=== PATIENT | male | born 1960 | race American Indian/Alaskan Native ===

== ENCOUNTER 2018-06-13 12:11 | Emergency (ER) | payer OTHER ==
[2018-06-13 12:26] VITALS: TEMP 98.4
--- NOTE | 2018-06-13 12:39 | ED PDOC ---
Arrival/HPI - General Chief Complaint: Chest Pain Time Seen by Provider: 06/13/18 12:16 Historian: Patient, Spouse - History of Present Illness Narrative History of Present Illness (Text): 06/13/18 12:39 57 year old male, whose past medical history includes cardiac stent (2012), prostate removal surgery (2018), HTN, and hyperlipedimia who presents to the emergency department complaining of chest pain, and lower abdominal and back pain, since the past 24hrs. Patient states that he was home sitting on his couch when he felt a sudden onset of throbbing pain in his lower abdominal region that radiates to his lower back. He rates the pain as a 6-7/10, no improvement with Tylenol or Motrin. He reports associated shortness of breath, chills, dizziness, nausea, 1 episode of vomit, bloating in his abdominal region, and excess gas. Patient denies fevers, rashes, headache, cough, diarrhea, neck pain, or any other complaint. PMD: Dr. Mccartney Time/Duration: 24 hours Symptom Course: Unchanged Quality: Throbbing Activities at Onset: Light Context: Home Past Medical History - Provider Review Nursing Documentation Reviewed: Yes - Travel History Have you recently traveled outside [place] w/in the past 3 mons?: No - Cardiac Hx Hypertension: Yes Other/Comment: x 1 stent in 2012 - Psychiatric Hx Substance Use: No - Surgical History Other/Comment: prostate removal as per pt in 2018 - Anesthesia Hx Anesthesia: Yes Hx Anesthesia Reactions: No Hx Malignant Hyperthermia: No Family/Social History - Physician Review Nursing Documentation Reviewed: Yes Family/Social History: No Known Family HX Smoking Status: Never Smoked Hx Alcohol Use: No Hx Substance Use: No Allergies/Home Meds Allergies/Adverse Reactions: Allergies No Known Allergies Allergy (Verified 06/13/18 12:23) Review of Systems - Physician Review All systems were reviewed & negative as marked: Yes - Review of Systems Constitutional: absent: Fevers Eyes: absent: Vision Changes Respiratory: SOB. absent: Cough Cardiovascular: Chest Pain Gastrointestinal: Abdominal Pain, Nausea, Vomiting. absent: Constipation, Diarrhea Genitourinary Male: absent: Dysuria Musculoskeletal: Back Pain. absent: Neck Pain Skin: absent: Rash Neurological: Dizziness. absent: Headache Physical Exam Vital Signs Reviewed: Yes Vital Signs Temp Pulse Resp BP Pulse Ox 06/13/18 12:12 98.4 F 75 18 186/91 H 100 Temperature: Afebrile Blood Pressure: Hypertensive Pulse: Regular Respiratory Rate: Normal Appearance: Positive for: Well-Appearing, Non-Toxic, Comfortable Pain Distress: None Mental Status: Positive for: Alert and Oriented X 3 - Systems Exam Head: Present: Atraumatic, Normocephalic Pupils: Present: PERRL Extroacular Muscles: Present: EOMI Conjunctiva: Present: Normal Mouth: Present: Moist Mucous Membranes Neck: Present: Normal Range of Motion Respiratory/Chest: Present: Clear to Auscultation, Good Air Exchange. No: Respiratory Distress, Accessory Muscle Use, Tender to Palpation (non tender to anterior chest) Cardiovascular: Present: Regular Rate and Rhythm, Normal S1, S2. No: Murmurs Abdomen: No: Tenderness, Distention, Peritoneal Signs Back: Present: CVA Tenderness (bilateral CVA tenderness). No: Midline Tenderness (no midline or lumbar tenderness) Upper Extremity: Present: Normal Inspection. No: Cyanosis, Edema Lower Extremity: Present: Normal Inspection. No: Edema Neurological: Present: GCS=15, CN II-XII Intact, Speech Normal Skin: Present: Warm, Dry, Normal Color. No: Rashes Psychiatric: Present: Alert, Oriented x 3, Normal Insight, Normal Concentration Medical Decision Making ED Course and Treatment: 06/13/18 12:39 Impression: 57 year old male who presents to the emergency department with chest pain, lower abdominal pain, and lower back pain. HEART Score: 2 Differential Diagnosis included but are not limited to: ACS choleilithiasis pancreatitis renal colic pylonephritis Plan: -- CT of abdomen and Pelvis -- EKG -- Labs -- Chest X-Ray -- Elixir -- Maalox Plus -- Pepcid -- Urinalysis -- Reassess and disposition Progress Notes: 06/13/18 15:11 Labs received with troponin negative. CT A/P pending. 06/13/18 15:38 CT a/p reveals mild right sided hydroneprosis with perinephric stranding. Results explained to patient who demonstrates understanding. Toradol ordered. He is stable for discharge. - Lab Interpretations I have reviewed the lab results: Yes - RAD Interpretation Narrative RAD Interpretations (Text): 06/13/18 14:03 Chest X-Ray reviewed, shows: FINDINGS: LUNGS:No active pulmonary disease. PLEURA:No significant pleural effusion identified, no pneumothorax apparent. CARDIOVASCULAR:No aortic atherosclerotic calcification present. Normal cardiac size. No pulmonary vascular congestion. OSSEOUS STRUCTURES:No significant abnormalities. VISUALIZED UPPER ABDOMEN:Normal. OTHER FINDINGS:None. IMPRESSION: No active disease. 06/13/18 15:40 CT of abdomen and Pelvis Reviewed, shows: FINDINGS: LOWER THORAX:Unremarkable. LIVER:Unremarkable. No gross lesion or ductal dilatation. GALLBLADDER AND BILE DUCTS:Unremarkable. PANCREAS:Unremarkable. No gross lesion or ductal dilatation. SPLEEN:Unremarkable. ADRENALS:Unremarkable. No mass. KIDNEYS AND URETERS:There is mild right-sided hydronephrosis and perinephric stranding. There is no visible ureteral stone. This may be secondary to recent passage of a stone or pyelonephritis. Clinical correlation is suggested. VASCULATURE:Unremarkable. No aortic aneurysm. No aortic atherosclerotic calcification or mural plaque present. BOWEL:Unremarkable. No obstruction. No gross mural thickening. APPENDIX:Unremarkable. Normal appendix. PERITONEUM:Unremarkable. No free fluid. No free air. LYMPH NODES:Unremarkable. No enlarged lymph nodes. BLADDER:Unremarkable. REPRODUCTIVE:Unremarkable. BONES:No acute fracture. OTHER FINDINGS:None. IMPRESSION: There is mild right-sided hydronephrosis and perinephric stranding. There is no visible ureteral stone. This may be secondary to recent passage of a stone or pyelonephritis. Clinical correlation is suggested. Soda Fountain Operator: Radiologist - EKG Interpretation EKG Interpretation (Text): 06/13/18 12:15 EKG reviewed shows: NSR at 92bpm with LVH, T-wave inversions in v5 and v6. Interpreted by ED Physician: Yes Type: 12 lead EKG - Scribe Statement The provider has reviewed the documentation as recorded by the Fabianoe Esperanza Francis Provider Scribe Attestation: All medical record entries made by the Scribe were at my direction and personally dictated by me. I have reviewed the chart and agree that the record accurately reflects my personal performance of the history, physical exam, medical decision making, and the department course for this patient. I have also personally directed, reviewed, and agree with the discharge instructions and disposition. Disposition/Present on Arrival - Present on Arrival Any Indicators Present on Arrival: No History of DVT/PE: No History of Uncontrolled Diabetes: No Urinary Catheter: No History of Decub. Ulcer: No History Surgical Site Infection Following: None - Disposition Have Diagnosis and Disposition been Completed?: Yes Diagnosis: Renal colic Disposition: HOME/ ROUTINE Disposition Time: 16:17 Patient Plan: Discharge Condition: IMPROVED Discharge Instructions (ExitCare): Renal Colic (DC) Print Language: INDONESIAN Additional Instructions: All medical record entries made by the Scribe were at my direction and personally dictated by me. I have reviewed the chart and agree that the record accurately reflects my personal performance of the history, physical exam, medical decision making, and the department course for this patient. I have also personally directed, reviewed, and agree with the discharge instructions and disposition. Prescriptions: RX: Ibuprofen [Motrin Tab] 600 mg PO Q6H PRN 6 Days #24 tab PRN Reason: Pain, Moderate (4-7) Referrals: Perla Mccartney MD [Primary Care Provider] - Follow up with primary Forms: [email or web address] ([place])
[2018-06-13] MEDS ORDERED: Alum-Mag Hydrox-Simethicone Susp (30 mL) PO STA (12:44)
[2018-06-13] MEDS ORDERED: Atrop/Hyosc/Scopal/PB Elixir (120 ml) PO STA (12:44)
--- NOTE | 2018-06-13 13:15 | RAD ---
Date of service: 06/13/2018 HISTORY: chest pain COMPARISON: No prior. FINDINGS: LUNGS: No active pulmonary disease. PLEURA: No significant pleural effusion identified, no pneumothorax apparent. CARDIOVASCULAR: No aortic atherosclerotic calcification present. Normal cardiac size. No pulmonary vascular congestion. OSSEOUS STRUCTURES: No significant abnormalities. VISUALIZED UPPER ABDOMEN: Normal. OTHER FINDINGS: None. IMPRESSION: No active disease.
[2018-06-13 13:16] LABS: BASO # 0.01 K/mm3 (0.0-2.0); BASO % 0.1 % (0.0-3.0); EOS % 0.4 % (1.5-5.0); GRAN # 6.49 (1.4-6.5); GRAN % 78.3 % (50.0-68.0); HEMOGLOBIN 14.5 g/dL (14.0-18.0); LYMPH # 0.9 (1.2-3.4); LYMPH % 11.3 % (22.0-35.0); MEAN CELL VOLUME 80.6 fl (80.0-105.0); MEAN CORPUSCULAR HEMOGLOBIN 26.6 pg (25.0-35.0); MONO # 0.8 (0.1-0.6); MONO % 9.9 % (1.0-6.0); RBC 5.46 10^6/uL (3.5-6.1); RED CELL DISTRIBUTION WIDTH 13.5 % (11.5-14.5); WHITE BLOOD COUNT 8.3 10^3/uL (4.5-11.0)
[2018-06-13 13:22] LABS: INR 1.04; PARTIAL THROMBOPLASTIN TIME 33.4 Seconds (25.1-36.5)
[2018-06-13 14:11] LABS: ALB/GLOB RATIO 1.4 (1.1-1.8); ALBUMIN 4.7 g/dL (3.0-4.8); ALT/SGPT 23 U/L (7-56); AST/SGOT 25 U/L (17-59); BLOOD UREA NITROGEN 20 mg/dL (7-21); CALCIUM 9.4 mg/dL (8.4-10.5); GFR NON-AFRICAN AMERICAN 42; LIPASE 94 U/L (23-300)
[2018-06-13 14:22] LABS: TROPONIN I < 0.01 ng/mL
--- NOTE | 2018-06-13 15:33 | CT ---
Date of service: 06/13/2018 PROCEDURE: CT Abdomen and Pelvis without intravenous contrast HISTORY: lower abdominal pain w/ b/l CVA tenderness COMPARISON: None. TECHNIQUE: Without contrast.. Contrast dose: Radiation dose: Total exam DLP = 633.49 mGy-cm. This CT exam was performed using one or more of the following dose reduction techniques: Automated exposure control, adjustment of the mA and/or kV according to patient size, and/or use of iterative reconstruction technique. FINDINGS: LOWER THORAX: Unremarkable. LIVER: Unremarkable. No gross lesion or ductal dilatation. GALLBLADDER AND BILE DUCTS: Unremarkable. PANCREAS: Unremarkable. No gross lesion or ductal dilatation. SPLEEN: Unremarkable. ADRENALS: Unremarkable. No mass. KIDNEYS AND URETERS: There is mild right-sided hydronephrosis and perinephric stranding. There is no visible ureteral stone. This may be secondary to recent passage of a stone or pyelonephritis. Clinical correlation is suggested. VASCULATURE: Unremarkable. No aortic aneurysm. No aortic atherosclerotic calcification or mural plaque present. BOWEL: Unremarkable. No obstruction. No gross mural thickening. APPENDIX: Unremarkable. Normal appendix. PERITONEUM: Unremarkable. No free fluid. No free air. LYMPH NODES: Unremarkable. No enlarged lymph nodes. BLADDER: Unremarkable. REPRODUCTIVE: Unremarkable. BONES: No acute fracture. OTHER FINDINGS: None. IMPRESSION: There is mild right-sided hydronephrosis and perinephric stranding. There is no visible ureteral stone. This may be secondary to recent passage of a stone or pyelonephritis. Clinical correlation is suggested.
[2018-06-13 16:06] LABS: URINE BILIRUBIN NEGATIVE (NEGATIVE); URINE BLOOD NEGATIVE (NEGATIVE); URINE GLUCOSE (UA) NEGATIVE (NEGATIVE); URINE LEUKOCYTE ESTERASE NEGATIVE Leu/uL (NEGATIVE); URINE PROTEIN NEGATIVE mg/dL (<30 mg/dL); URINE UROBILINOGEN 0.2 E.U./dL (<1 E.U./dL)
[2018-06-13 16:07] LABS: URINE APPEARANCE CLEAR (CLEAR); URINE COLOR STRAW (YELLOW)
[2018-06-13 17:21] VITALS: BP 136/76; PULSE 80; RESP 20; O2SAT 100
--- NOTE | 2018-06-13 19:47 | CARD ---
APPROVED REPORT Date of service: 06/13/2018 EKG Measurement Heart [id number] <Conclusion> Normal sinus rhythm Possible Left atrial enlargement Left ventricular hypertrophy T wave abnormality, consider lateral ischemia Abnormal ECG
== END 2018-06-13 17:00 | disposition home or self-care (01) ==
LOC: ED 12:11
DX: N23 Unspecified renal colic (principal); I10 Essential (primary) hypertension; Z95.5 Presence of coronary angioplasty implant and graft
CPT/HCPCS: 71045; 74176; 80053; 81003; 83690; 84484; 85025; 85610; 85730; 93005; 96374; 96375; 99284; J0360; J1885